=== PATIENT | male | born 1990 | race Caucasian/White ===

== ENCOUNTER 2020-03-10 11:49 | Emergency (ER) | payer OTHER ==
[~2020-03-10] VITALS: Ht 180.3 cm; Wt 68.0 kg
[~2020-03-10 11:49] MED LIST: METH5TAB2; METO5TAB2
[2020-03-10 11:59] VITALS: BP 124/89
[2020-03-10] MEDS ORDERED: LIDOCAINE 1% HCL (LOCAL ANESTH.) INJ 20ML MDV IJ ONE (12:45)
[2020-03-10] MEDS ORDERED: TETANUS-DIPTH-ACEL PERTUSSIS 0.5ML SYR Tdap IM ONE (13:15)
== END 2020-03-10 13:14 | disposition home or self-care (01) ==
LOC: ER 11:49
DX: S61.215A Laceration without foreign body of left ring finger without damage to nail, initial encounter (principal); S61.255A Open bite of left ring finger without damage to nail, initial encounter; F17.210 Nicotine dependence, cigarettes, uncomplicated; W54.0XXA Bitten by dog, initial encounter; Y93.89 Activity, other specified; Y92.89 Other specified places as the place of occurrence of the external cause; Y99.8 Other external cause status
CPT/HCPCS: 12001